=== PATIENT | female | born 1940 | race Hispanic/Latino ===

== ENCOUNTER 2016-09-03 18:13 | Emergency (ER) | payer MEDICARE ==
[2016-09-03 18:19] VITALS: BP 153/100; PULSE 82; RESP 18; TEMP 97.6; O2SAT 97
[2016-09-03] MEDS ORDERED: TDAP Vaccine 0.5 mL Syr IM ONE (18:24)
--- NOTE | 2016-09-03 18:25 | ED PDOC ---
HPI: General Adult Time Seen by Provider: 09/03/16 18:19 Chief Complaint (Nursing): Abnormal Skin Integrity Chief Complaint (Provider): Laceration left 1st digit History Per: Patient History/Exam Limitations: no limitations Onset/Duration Of Symptoms: Mins Have you had recent travel within the past 21 days to any of the following countries: [place], [place], [place] or [place]?: No Current Symptoms Are (Timing): Still Present Additional History Per: Patient Additional Complaint(s): The pt is a 76yo female, PMHx of HTN, Hyperthyroidsm, presents to ED for evaluation of laceration to left 1st digit while cutting cheese, sustained prior to arrival. Pt reports the wound was bleeding profusely earlier on, prompting her visit to the ED. At present, denies active bleeding. She reports she is unaware if her Tetanus is up to date. Pt offers no additional medical complaints. Of note, pt denies using any anticoagulants. Past Medical History Reviewed: Historical Data, Nursing Documentation, Vital Signs Vital Signs: Last Vital Signs Temp 97.6 F 09/03/16 18:17 Pulse 82 09/03/16 18:17 Resp 18 09/03/16 18:17 BP 153/100 H 09/03/16 18:17 Pulse Ox 97 09/03/16 23:21 - Medical History PMH: HTN, Hypothyroidism - Family History Family History: States: No Known Family Hx - Allergies Allergies/Adverse Reactions: Allergies Allergy/AdvReac Type Severity Reaction Status Date / Time No Known Allergies Allergy Verified 09/03/16 18:17 Review of Systems ROS Statement: Except As Marked, All Systems Reviewed And Found Negative Physical Exam - Reviewed Nursing Documentation Reviewed: Yes (0.5cm linear laceration to left 1st digit; no active bleeding) Vital Signs Reviewed: Yes - Physical Exam Appears: Positive for: Well, Non-toxic, No Acute Distress Head Exam: Positive for: ATRAUMATIC, NORMAL INSPECTION, NORMOCEPHALIC Skin: Positive for: Normal Color, Warm. Negative for: Rash Eye Exam: Positive for: Normal appearance Respiratory: Negative for: Respiratory Distress Pulses-Radial (L): 2+ Extremity: Positive for: Normal ROM (actively of L thumb), Capillary Refill (< 2 seconds), Other (0.5cm linear laceration on distal phalanx of L thumb without active bleeding). Negative for: Deformity, Swelling Neurologic/Psych: Positive for: Alert, Oriented - ECG O2 Sat by Pulse Oximetry: 97 (RA) Pulse Ox Interpretation: Normal - Progress ED Course And Treament: Wound irrigated heavily with NS. Bacitracin ointment applied. DSD applied. Medical Decision Making Medical Decision Making: Time: 1829 Impression: 0.5 superficial linear laceration to left 1st digit Plan: -- Irrigate wound with NS -- Antibiotic cream applied, sterile dressing applied -- TDAP Booster Scribe Attestation: Documented by Zainab Beck acting as a scribe for KIARA Boland Provider Attestation: All medical record entries made by the Scribe were at my direction and personally dictated by me. I have reviewed the chart and agree that the record accurately reflects my personal performance of the history, physical exam, medical decision making, and the department course for this patient. I have also personally directed, reviewed, and agree with the discharge instructions and disposition. Disposition - Clinical Impression Clinical Impression: Thumb laceration - Patient ED Disposition Is Patient to be Admitted: No - Disposition Disposition: Routine/Home Disposition Time: 18:30 Condition: STABLE Instructions: Laceration Without Closure (ED) Print Language: GREEK
== END 2016-09-03 19:20 | disposition home or self-care (01) ==
LOC: H.ER 18:13
DX: S61.012A Laceration without foreign body of left thumb without damage to nail, initial encounter (principal); W26.0XXA Contact with knife, initial encounter; Y93.G1 Activity, food preparation and clean up; Y92.9 Unspecified place or not applicable; Z23 Encounter for immunization